=== PATIENT | female | born 1965 | race Hispanic/Latino ===

== ENCOUNTER 2021-08-22 08:41 | Emergency (ER) | payer OTHER ==
[~2021-08-22] VITALS: Ht 165.1 cm; Wt 72.6 kg
[2021-08-22] MEDS ORDERED: ACETAMINOPHEN 325 MG TAB PO SCH (09:00)
[2021-08-22 09:08] LABS: BASOPHILS % (AUTO) 0.4 % (0.0-5.0); EOSINOPHILS % (AUTO) 0.4 % (0.0-8.0); HEMATOCRIT 25.4 % (36-48); LYMPHOCYTES % (AUTO) 11.4 % (21.0-51.0); MEAN CORPUSCULAR HEMOGLOBIN 21.2 pg (27.0-33.0); MEAN CORPUSCULAR HGB CONC 29.5 g/dL (32.0-36.0); MEAN CORPUSCULAR VOLUME 71.8 fL (79-99); NEUTROPHILS % (AUTO) 82.3 % (40.0-77.0); PLATELET COUNT (AUTO) 345 K/uL (130-400); RED BLOOD CELL COUNT(AUTO) 3.54 MIL/uL (4.00-5.50); RED CELL DISTRIBUTION WIDTH 26.7 % (11.0-15.5); WHITE BLOOD COUNT (AUTO) 11.6 K/uL (4.8-10.8)
[2021-08-22 09:28] LABS: CREATININE 0.8 mg/dL (0.5-1.5); POTASSIUM 3.9 mmol/L (3.5-5.1)
[2021-08-22 09:32] LABS: ALBUMIN 3.1 g/dL (3.5-5.0); BILIRUBIN,TOTAL 0.3 mg/dL (0.2-1.0); TOTAL PROTEIN, SERUM 6.2 g/dL (6.0-8.3)
[2021-08-22] MEDS ORDERED: IOHEXOL-350 75 ML VIAL IV ONE (11:11)
[2021-08-22 11:35] LABS: APPEARANCE,URINE TURBID (CLEAR); BILIRUBIN,URINE SMALL (NEGATIVE); GLUCOSE, URINE (UA) 100 mg/dL (NEGATIVE); KETONES,URINE 15 mg/dL (NEGATIVE); LEUKOCYTE ESTERASE ,URINE MODERATE (NEGATIVE); NITRATE,URINE POSITIVE (NEGATIVE); OCCULT BLOOD,URINE LARGE (NEGATIVE); PH,URINE 6.5 (5.0-8.0); PROTEIN,URINE >=300 mg/dL (NEGATIVE)
[2021-08-22 11:43] LABS: COLOR,URINE RED (YELLOW)
[2021-08-22 11:50] LABS: RBC,URINE TNTC /HPF (0-1)
[2021-08-22 11:51] LABS: BACTERIA,URINE Few /HPF (None Seen); SQUAMOUS EPITHELIAL CELL,UR Rare /HPF (0-2); WBC,URINE 26-50 /HPF (0-1)
[2021-08-23 00:21] VITALS: BP 114/56
[2021-08-23] MEDS ORDERED: ACETAMINOPHEN 500 MG TABLET PO ONE (01:00)
[2021-08-23] MEDS ORDERED: ACETAMINOPHEN 325 MG TAB PO ONE (01:00)
[2021-08-23] MEDS ORDERED: ACETAMINOPHEN 325 MG TAB ONE (01:07)
== END 2021-08-23 02:00 | disposition home or self-care (01) ==
LOC: EDH 08:41 → EDBD 08:41 → EDH 08-23 02:00
DX: D64.9 Anemia, unspecified (principal); N93.9 Abnormal uterine and vaginal bleeding, unspecified
CPT/HCPCS: 36415; 36430; 74177; 76856; 80053; 81001; 85025; 86850; 86900; 86901; 86923; 87088; 99285; P9016 ×2; Q9967